=== PATIENT | male | born 1975 | race Hispanic/Latino ===

== ENCOUNTER 2021-02-26 20:14 | Observation (INO) | payer MEDICAID ==
[2021-02-26] MEDS ORDERED: ASPIRIN 325 MG TAB PO ONE (20:27)
[2021-02-26] MEDS ORDERED: MORPHINE 2 MG/1 ML INJ IV ONE (20:45)
--- NOTE | 2021-02-26 20:49 | Emergency Department Report ---
ED Chest Pain HPI - General Chief Complaint: Chest Pain Stated Complaint: CHEST PAIN PUI?: No Time Seen by Provider: 02/26/21 20:44 Source: patient Mode of arrival: Ambulatory Limitations: No Limitations - History of Present Illness Initial Comments: Patient is a 45-year-old male that presents emergency room with complaints of c hest pain. Patient states that his chest pain started around noon today. Patient states his chest pain is worsening. Patient states about 45 minutes prior to arrival he had a syncopal episode. Patient states that after he woke up from [facility] he took 3 nitros with the chest pain was more severe. Patient states chest pain is a 10 out of 10. Patient states that he had some relief from the nitro but very little. Patient states the chest pain is better with rest and worse with exertion. Patient states she has a past medical history of heart attacks, strokes, hypertension. Patient states that he has a defibrillator. Patient states he had 2 NSTEMI's in the past. Patient states he has no stents. Patient denies shortness of breath. Patient denies fever and chills. Patient states he has nausea without vomiting. Patient denies recent travel. Patient denies recent international travel. Patient denies exposure to the novel coronavirus. Patient denies sick contacts. Patient denies fever and chills. Patient denies cough. Patient denies diarrhea. Patient denies coming in contact with anybody with symptoms of the novel coronavirus. MD Complaint: chest pain -: Sudden Onset: during rest Pain Location: left chest Pain Radiation: neck, jaw/teeth Severity: severe Severity scale (0 -10): 10 Quality: sharp Consistency: constant Improves With: rest Worsens With: exertion re: nausea, sense of impending doom. denies: vomting, diaphoresis Other Symptoms: syncope Treatments Prior to Arrival: nitroglycerin Aspirin use within the Past 7 Days: (1) Yes - Related Data On Oral Contraceptives: No Allergies Allergy/AdvReac Type Severity Reaction Status Date / Time No Known Allergies Allergy Unverified 02/26/21 20:23 Heart Score - HEART Score History: Highly suspicious EKG: Non-specific Age: 45-65 Risk factors: > 3 risk factors or hx of atherosclerotic disease Troponin: < normal limit HEART Score: 6 - EKG Read Time Time EKG Completed: 20:19 EKG Read Time: 20:21 ED Review of Systems ROS: Stated complaint: CHEST PAIN Other details as noted in HPI Constitutional: denies: chills, fever Eyes: denies: eye pain, eye discharge, vision change ENT: denies: ear pain, throat pain Respiratory: denies: cough, shortness of breath, wheezing Cardiovascular: as per HPI, chest pain. denies: palpitations Endocrine: no symptoms reported Gastrointestinal: nausea. denies: abdominal pain, diarrhea Genitourinary: denies: urgency, dysuria Musculoskeletal: denies: back pain, joint swelling, arthralgia Skin: denies: rash, lesions Neurological: denies: headache, weakness, paresthesias Psychiatric: denies: anxiety, depression Hematological/Lymphatic: denies: easy bleeding, easy bruising ED Past Medical Hx - Past Medical History Previous Medical History?: Yes Hx Hypertension: Yes Hx CVA: Yes Hx Heart Attack/AMI: Yes Hx Seizures: Yes Additional medical history: NSTEMI x2 - Surgical History Past Surgical History?: Yes Additional Surgical History: pacemaker/defib - Family History Family history: no significant - Social History Smoking Status: Current Every Day Smoker Substance Use Type: Marijuana ED Physical Exam - General Limitations: No Limitations General appearance: alert, in no apparent distress - Head Head exam: Present: atraumatic, normocephalic - Eye Eye exam: Present: normal appearance - ENT ENT exam: Present: mucous membranes moist - Neck Neck exam: Present: normal inspection - Respiratory Respiratory exam: Present: normal lung sounds bilaterally. Absent: respiratory distress, chest wall tenderness - Cardiovascular Cardiovascular Exam: Present: regular rate, normal rhythm. Absent: systolic murmur, diastolic murmur, rubs, gallop - GI/Abdominal GI/Abdominal exam: Present: soft, normal bowel sounds - Rectal Rectal exam: Present: deferred - Extremities Exam Extremities exam: Present: normal inspection - Back Exam Back exam: Present: normal inspection - Neurological Exam Neurological exam: Present: alert, oriented X3 - Psychiatric Psychiatric exam: Present: normal affect, normal mood - Skin Skin exam: Present: warm, dry, intact, normal color. Absent: rash ED Course Vital Signs 02/26/21 02/26/21 02/26/21 20:24 20:50 21:01 Temperature 98.3 F 97.7 F Pulse Rate 92 H 84 80 Respiratory 18 14 19 Rate Blood Pressure 129/94 123/67 Blood Pressure 136/76 [Right] O2 Sat by Pulse 97 96 97 Oximetry 02/26/21 02/26/21 02/26/21 21:12 21:16 21:42 Temperature Pulse Rate 79 Respiratory 18 13 18 Rate Blood Pressure 123/67 Blood Pressure [Right] O2 Sat by Pulse 96 Oximetry 02/26/21 02/26/21 02/26/21 22:32 22:45 23:01 Temperature Pulse Rate 87 83 89 Respiratory 22 12 23 Rate Blood Pressure 134/74 134/74 Blood Pressure [Right] O2 Sat by Pulse 97 98 Oximetry 02/26/21 02/26/21 02/26/21 23:02 23:15 23:31 Temperature Pulse Rate 81 88 Respiratory 18 14 Rate Blood Pressure 147/99 123/67 Blood Pressure [Right] O2 Sat by Pulse Oximetry 02/26/21 23:45 Temperature Pulse Rate 82 Respiratory 14 Rate Blood Pressure 134/74 Blood Pressure [Right] O2 Sat by Pulse Oximetry - Reevaluation(s) Reevaluation #1: Patient still complaining of chest pain. He states the pain is a little bit better. Patient states he is having nausea as well now. Patient will be given Dilaudid and Zofran. 02/26/21 22:05 Reevaluation #2: I discussed all results with patient. I discussed plan of care with patient. Patient agrees with plan of care and admission. Patient to be admitted to the hospitalist service. 02/26/21 23:06 - Consultations Consultation #1: Hospitalist consulted for admission. Hospitalist to admit patient. 02/26/21 23:06 SAUL score - Saul Score Age > 65: (0) No Aspirin use within the Past 7 Days: (1) Yes 3 or more CAD Risk Factors: (1) Yes 2 or more Angina events in past 24 hrs: (1) Yes Known CAD with more than 50% Stenosis: (0) No Elevated Cardiac Markers: (0) No ST Deviation Greater than 0.5mm: (0) No SAUL Score: 3 ED Medical Decision Making - Lab Data Result diagrams: 02/26/21 23:41 02/26/21 20:35 - Radiology Data Radiology results: report reviewed, image reviewed interpreted by me: Chest x-ray: No pneumonia, no pneumothorax, no foreign body, no osseous findings, no acute findings CHEST 1 VIEW INDICATION: chest pain. COMPARISON: None FINDINGS: SUPPORT DEVICES: Cardiac leads project over the right atrium and the right ventricle. HEART: Within normal limits. LUNGS/PLEURA: No acute air space or interstitial disease. ADDITIONAL FINDINGS: None. IMPRESSION: 1. No acute findings. NONENHANCED CT SCAN OF THE HEAD: INDICATION / CLINICAL INFORMATION: 45 years Male; syncope. TECHNIQUE: Routine CT head without contrast. All CT scans at this location are performed using CT dose reduction for ALARA by means of automated exposure control. COMPARISON: None. FINDINGS: BRAIN / INTRACRANIAL CONTENTS: No acute hemorrhage, mass effect, midline shift, hydrocephalus, or acute, large territorial infarct. No chronic infarct or focal atrophy. Normal brain volume and ventricular/sulcal size for age. No significant white matter abnormality. CRANIOCERVICAL JUNCTION: No significant abnormality. ORBITS: No significant abnormality of visualized orbits. SINUSES / MASTOIDS: No significant abnormality of the visualized paranasal s inuses or mastoid air cells. ADDITIONAL FINDINGS: None. IMPRESSION: No focal parenchymal lesion - Medical Decision Making Patient is a 45-year-old male who presents emergency room with complaints of chest pain. Patient also had a syncopal episode after the chest pain started. Patient states he woke up with chest pain and took 3 nitros and his pain continued so he came to the hospital. Patient has a cardiac history to include NSTEMI. Patient had labs done which were essentially unremarkable. Patient was given morphine and his pain in proved. Patient then complained of worsening pain and nausea and the patient was given Dilaudid. Patient had a chest x-ray which was negative for acute findings. Patient had an EKG which was negative for acute findings. Personally reviewed the EKG and chest x-ray. Patient had CT for the syncopal episode. CT was negative for acute findings. Patient admitted to the hospital service for further evaluation treatment and rule out ACS. Critical care time documented due to the multiple reassessments, prolonged time at the bedside, interpretation of diagnostics and labs. - Differential Diagnosis ACS chest pain, syncope, pneumonia, nausea Critical Care Time: Yes Critical care time in (mins) excluding proc time.: 35 Critical care attestation.: If time is entered above; I have spent that time in minutes in the direct care of this critically ill patient, excluding procedure time. Critical Care Time: 35 minutes ED Disposition Clinical Impression: Chest pain Qualifiers: Chest pain type: unspecified Qualified Code(s): R07.9 - Chest pain, unspecified CAD (coronary artery disease) Qualifiers: Coronary Disease-Associated Artery/Lesion type: [place] artery [place] vs. transplanted heart: [place] heart Associated angina: unspecified whether angina present Qualified Code(s): I25.10 - Atherosclerotic heart disease of [place] coronary artery without angina pectoris Syncope Qualifiers: Syncope type: unspecified Qualified Code(s): R55 - Syncope and collapse Disposition: 09 OP ADMIT IP TO THIS HOSP Is pt being admited?: Yes Does the pt Need Aspirin: No Condition: Critical Time of Disposition: 23:07
[2021-02-26 20:52] LABS: Basophils # (Auto) 0.1 K/mm3 (0.0-0.1); Basophils % (Auto) 1.3 % (0.0-1.8); Eosinophils # (Auto) 0.4 K/mm3 (0.0-0.4); Eosinophils % (Auto) 6.3 % (0.0-4.3); Hematocrit 35.1 % (35.5-45.6); Hemoglobin 11.6 gm/dl (11.8-15.2); Lymphocytes # (Auto) 2.3 K/mm3 (1.2-5.4); Lymphocytes % (Auto) 38.9 % (13.4-35.0); Mean Corpuscular HGB Conc 33 % (32-34); Mean Corpuscular Volume 80 fl (84-94); Monocytes # (Auto) 0.5 K/mm3 (0.0-0.8); Monocytes % (Auto) 8.7 % (0.0-7.3); Platelet Count 370 K/mm3 (140-440); Red Blood Count 4.42 M/mm3 (3.65-5.03); Red Cell Distribution Width 16.6 % (13.2-15.2)
--- NOTE | 2021-02-26 21:00 | XRay Report ---
CHEST 1 VIEW INDICATION: chest pain. COMPARISON: None FINDINGS: SUPPORT DEVICES: Cardiac leads project over the right atrium and the right ventricle. HEART: Within normal limits. LUNGS/PLEURA: No acute air space or interstitial disease. ADDITIONAL FINDINGS: None. IMPRESSION: 1. No acute findings. Signer Name: Jose Ramon Brown MD Signed: 02/26/2021 8:56 PM Workstation Name: [id number]
[2021-02-26 21:15] LABS: Alanine Aminotransferase 13 units/L (7-56); Albumin 4.1 g/dL (3.9-5); BUN/Creatinine Ratio 14; Blood Urea Nitrogen 11 mg/dL (9-20); Calcium 8.4 mg/dL (8.4-10.2); Hemolysis Index 9
--- NOTE | 2021-02-26 21:39 | Cat Scan Report ---
NONENHANCED CT SCAN OF THE HEAD: INDICATION / CLINICAL INFORMATION: 45 years Male; syncope. TECHNIQUE: Routine CT head without contrast. All CT scans at this location are performed using CT dos e reduction for ALARA by means of automated exposure control. COMPARISON: None. FINDINGS: BRAIN / INTRACRANIAL CONTENTS: No acute hemorrhage, mass effect, midline shift, hydrocephalus, or acu te, large territorial infarct. No chronic infarct or focal atrophy. Normal brain volume and ventricul ar/sulcal size for age. No significant white matter abnormality. CRANIOCERVICAL JUNCTION: No significant abnormality. ORBITS: No significant abnormality of visualized orbits. SINUSES / MASTOIDS: No significant abnormality of the visualized paranasal sinuses or mastoid air gabriela ls. ADDITIONAL FINDINGS: None. IMPRESSION: No focal parenchymal lesion Signer Name: Awais Salgado MD Signed: 02/26/2021 9:35 PM Workstation Name: [id number]
[2021-02-26 21:43] LABS: INR 0.86 (0.87-1.13)
[2021-02-26 21:44] LABS: Partial Thromboplastin Time 23.5 Sec. (24.2-36.6)
[2021-02-26] MEDS ORDERED: ONDANSETRON 4 MG/2 ML INJ IV ONE (22:26)
[2021-02-26] MEDS ORDERED: HYDROmorphone 1 MG/1 ML INJ IV ONE (22:26)
[2021-02-26] MEDS ORDERED: traMADol 50 MG TAB PO PRN (23:26)
[2021-02-26] MEDS ORDERED: NITROGLYCERIN 0.4 MG TAB SUBL SL PRN (23:26)
[2021-02-26] MEDS ORDERED: ACETAMINOPHEN 325 MG TAB PO PRN (23:26)
[2021-02-26] MEDS ORDERED: hydrALAZINE 20 MG/1 ML INJ IV PRN (23:28)
--- NOTE | 2021-02-26 23:33 | History and Physical Report ---
History of Present Illness Date of examination: 02/26/21 Date of admission: 02/26/21 Chief complaint: Chest pain Syncopal episode History of present illness: 45-year-old male with past medical history of hypertension and strokes and defibrillator was brought to the emergency room because of chest pain since noon today. Chest pain was sharp left-sided 10/10 constant rating to the neck and jaw. patient states about 45 minutes prior to arrival he had a syncopal ep isode. Patient took 3 nitros with the chest pain was more severe. Patient states that he had some relief from the nitro but very little. Patient states the chest pain is better with rest and worse with exertion. Patient states he had 2 NSTEMI's in the past. Patient states he has no stents. Patient denies shortness of breath. Patient denies fever and chills. Patient states he has nausea without vomiting. In the emergency room initial cardiac enzyme is negative troponin is 0.010 Past History Past Medical History: hypertension, seizures (Non-ST elevation [place]), stroke Medications and Allergies Allergies Allergy/AdvReac Type Severity Reaction Status Date / Time No Known Allergies Allergy Unverified 02/26/21 20:23 Review of Systems Cardiovascular: chest pain, syncope Exam - Constitutional Vitals: Temp Pulse Resp BP Pulse Ox 97.7 F 81 14 147/99 98 02/26/21 20:50 02/26/21 23:15 02/26/21 23:15 02/26/21 23:15 02/26/21 22:45 General appearance: Present: no acute distress, well-nourished - EENT Eyes: Present: PERRL ENT: hearing intact, clear oral mucosa - Neck Neck: Present: supple, normal ROM - Respiratory Respiratory effort: normal Respiratory: bilateral: CTA - Cardiovascular Heart Sounds: Present: S1 & S2. Absent: rub, click - Extremities Extremities: pulses symmetrical, No edema Peripheral Pulses: within normal limits - Abdominal General gastrointestinal: Present: soft, non-tender, non-distended, normal bowel sounds Male genitourinary: Present: normal - Integumentary Integumentary: Present: clear, warm, dry - Musculoskeletal Musculoskeletal: gait normal, strength equal bilaterally - Psychiatric Psychiatric: appropriate mood/affect, intact judgment & insight - Neurologic Neurologic: CNII-XII intact, moves all extremities HEART Score - HEART Score EKG: Non-specific Age: 45-65 Risk factors: > 3 risk factors or hx of atherosclerotic disease Troponin: Troponin T < 0.010 ng/mL (0.00-0.029) 02/26/21 20:35 Troponin: < normal limit Results - Labs CBC & Chem 7: 02/26/21 20:35 02/26/21 20:35 Labs: Laboratory Last Values WBC 6.0 K/mm3 (4.5-11.0) 02/26/21 20:35 RBC 4.42 M/mm3 (3.65-5.03) 02/26/21 20:35 Hgb 11.6 gm/dl (11.8-15.2) L 02/26/21 20:35 Hct 35.1 % (35.5-45.6) L 02/26/21 20:35 MCV 80 fl (84-94) L 02/26/21 20:35 MCH 26 pg (28-32) L 02/26/21 20:35 MCHC 33 % (32-34) 02/26/21 20:35 RDW 16.6 % (13.2-15.2) H 02/26/21 20:35 Plt Count 370 K/mm3 (140-440) 02/26/21 20:35 Lymph % (Auto) 38.9 % (13.4-35.0) H 02/26/21 20:35 [place] % (Auto) 8.7 % (0.0-7.3) H 02/26/21 20:35 Eos % (Auto) 6.3 % (0.0-4.3) H 02/26/21 20:35 Baso % (Auto) 1.3 % (0.0-1.8) 02/26/21 20:35 Lymph # (Auto) 2.3 K/mm3 (1.2-5.4) 02/26/21 20:35 [place] # (Auto) 0.5 K/mm3 (0.0-0.8) 02/26/21 20:35 Eos # (Auto) 0.4 K/mm3 (0.0-0.4) 02/26/21 20:35 Baso # (Auto) 0.1 K/mm3 (0.0-0.1) 02/26/21 20:35 Seg Neutrophils % 44.8 % (40.0-70.0) 02/26/21 20:35 Seg Neutrophils # 2.7 K/mm3 (1.8-7.7) 02/26/21 20:35 PT 12.3 Sec. (12.2-14.9) 02/26/21 21:08 INR 0.86 (0.87-1.13) L 02/26/21 21:08 APTT 23.5 Sec. (24.2-36.6) L 02/26/21 21:08 D-Dimer 173.15 ng/mlDDU (0-234) 02/26/21 21:08 Sodium 142 mmol/L (137-145) 02/26/21 20:35 Potassium 3.8 mmol/L (3.6-5.0) 02/26/21 20:35 Chloride 105.5 mmol/L (98-107) 02/26/21 20:35 Carbon Dioxide 23 mmol/L (22-30) 02/26/21 20:35 Anion Gap 17 mmol/L 02/26/21 20:35 BUN 11 mg/dL (9-20) 02/26/21 20:35 Creatinine 0.8 mg/dL (0.8-1.3) 02/26/21 20:35 Estimated GFR > 60 ml/min 02/26/21 20:35 BUN/Creatinine Ratio 14 % 02/26/21 20:35 Glucose 76 mg/dL (75-100) 02/26/21 20:35 Calcium 8.4 mg/dL (8.4-10.2) 02/26/21 20:35 Total Bilirubin < 0.20 mg/dL (0.1-1.2) 02/26/21 20:35 AST 15 units/L (5-40) 02/26/21 20:35 ALT 13 units/L (7-56) 02/26/21 20:35 Alkaline Phosphatase 81 units/L (35-129) 02/26/21 20:35 Troponin T < 0.010 ng/mL (0.00-0.029) 02/26/21 20:35 Total Protein 7.0 g/dL (6.3-8.2) 02/26/21 20:35 Albumin 4.1 g/dL (3.9-5) 02/26/21 20:35 Albumin/Globulin Ratio 1.4 % 02/26/21 20:35 - Imaging and Cardiology Chest x-ray: report reviewed CT Scan - head: report reviewed Assessment and Plan VTE prophylaxis?: Chemical Plan of care discussed with patient/family: Yes - Patient Problems (1) Acute coronary syndrome Current Visit: Yes Status: Acute Plan to address problem: Admit the patient to the cardiac telemetry. Aspirin 81 mg p.o. daily. Lipitor 40 mg p.o. daily nitroglycerin as needed. Morphine 2 mg every 4 hours as needed. Due to the serial cardiac enzyme. We also do a Lexiscan. Consult cardiology if needed in the morning (2) Hypertension Current Visit: Yes Status: Acute Plan to address problem: Hydralazine 10 mg IV every 6 hours as needed. We will monitor the blood pressure closely (3) CVA (cerebral vascular accident) Current Visit: Yes Status: Acute Plan to address problem: Aspirin 81 mg p.o. daily. Lipitor [address] head shows no acute intracranial abnormality (4) Tobacco abuse Current Visit: Yes Status: Acute Plan to address problem: We counseled regarding quit smoking. We will put the patient on nicotine patch 14 mg to the skin daily (5) CAD (coronary artery disease) Current Visit: Yes Status: Acute Qualifiers: Coronary Disease-Associated Artery/Lesion type: [place] artery [place] vs. transplanted heart: [place] heart Associated angina: unspecified whether angina present Qualified Code(s): I25.10 - Atherosclerotic heart disease of [place] coronary artery without angina pectoris Plan to address problem: Aspirin 81 mg p.o. daily. Lipitor 40 mg p.o. daily. Nitroglycerin as needed. Check lipid panel (6) DVT prophylaxis Current Visit: Yes Status: Acute Plan to address problem: Heparin 5000 units subcu every 8 hours for DVT prophylaxis. Protonix 40 mg p.o. daily for GI prophylaxis. Patient is a full code
[2021-02-27 00:09] LABS: Basophils # (Auto) 0.1 K/mm3 (0.0-0.1); Basophils % (Auto) 1.5 % (0.0-1.8); Eosinophils # (Auto) 0.3 K/mm3 (0.0-0.4); Eosinophils % (Auto) 6.7 % (0.0-4.3); Hematocrit 33.9 % (35.5-45.6); Hemoglobin 11.1 gm/dl (11.8-15.2); Lymphocytes # (Auto) 2.2 K/mm3 (1.2-5.4); Lymphocytes % (Auto) 42.3 % (13.4-35.0); Mean Corpuscular HGB Conc 33 % (32-34); Mean Corpuscular Volume 79 fl (84-94); Monocytes # (Auto) 0.3 K/mm3 (0.0-0.8); Monocytes % (Auto) 6.7 % (0.0-7.3); Platelet Count 358 K/mm3 (140-440); Red Blood Count 4.31 M/mm3 (3.65-5.03); Red Cell Distribution Width 16.7 % (13.2-15.2)
[2021-02-27 00:29] LABS: BUN/Creatinine Ratio 14; Blood Urea Nitrogen 11 mg/dL (9-20); Calcium 8.3 mg/dL (8.4-10.2); Hemolysis Index 11
[2021-02-27] MEDS ORDERED: NICOTINE 14 MG/24 HR PATCH TD ONE (00:45)
[2021-02-27] MEDS ORDERED: ONDANSETRON 4 MG/2 ML INJ ONE (01:03)
[2021-02-27] MEDS: MORPHINE 2 MG/1 ML INJ IV PRN ×2 (01:07→06:57)
[2021-02-27] MEDS ORDERED: HEPARIN 5,000 UNIT/1 ML VIAL SUB-Q SCH (06:00)
[2021-02-27] MEDS: ONDANSETRON 4 MG/2 ML INJ IV PRN ×2 (06:55→09:31)
[2021-02-27] MEDS ORDERED: REGADENOSON 0.4 MG/5 ML INJ IV ONE ×2 (08:39→08:49)
[2021-02-27] MEDS ORDERED: ONDANSETRON 4 MG/2 ML INJ IV ONE (09:01)
--- NOTE | 2021-02-27 09:12 | Progress Note ---
Assessment and Plan Assessment and plan: -- Acute coronary syndrome Current Visit: Yes Status: Acute Admit the patient to the cardiac telemetry. Aspirin 81 mg p.o. daily. Lipitor 40 mg p.o. daily nitroglycerin as needed. Morphine 2 mg every 4 hours as needed. Due to the serial cardiac enzyme. We also do a Lexiscan. Consult cardiology if needed in the morning -- Hypertension Current Visit: Yes Status: Acute Hydralazine 10 mg IV every 6 hours as needed. We will monitor the blood pressure closely --Syncope Current Visit: Yes Status: Acute Aspirin 81 mg p.o. daily. Lipitor [address] head shows no acute intracranial abnormality Echocardiogram, carotid Doppler, PT if needed, fall precautions --Tobacco abuse Current Visit: Yes Status: Acute We counseled regarding quit smoking. We will put the patient on nicotine patch 14 mg to the skin daily -- CAD (coronary artery disease) Current Visit: Yes Status: Acute : Aspirin 81 mg p.o. daily. Lipitor 40 mg p.o. daily. Nitroglycerin as needed. Check lipid panel -- DVT prophylaxis Current Visit: Yes Status: Acute Heparin 5000 units subcu every 8 hours for DVT prophylaxis. Protonix 40 mg p.o. daily for GI prophylaxis. Patient is a full code Hospitalist Physical - Constitutional Vitals: Temp Pulse Resp BP Pulse Ox 97.9 F 83 18 128/81 97 02/27/21 04:19 02/27/21 04:19 02/27/21 06:57 02/27/21 04:19 02/27/21 04:19 General appearance: Present: no acute distress, well-nourished HEART Score - HEART Score EKG: Non-specific Age: 45-65 Risk factors: > 3 risk factors or hx of atherosclerotic disease Troponin: Troponin T < 0.010 ng/mL (0.00-0.029) 02/27/21 05:25 Troponin: < normal limit Results - Labs CBC & Chem 7: 02/26/21 23:41 02/26/21 23:41 Labs: Laboratory Last Values WBC 5.2 K/mm3 (4.5-11.0) 02/26/21 23:41 RBC 4.31 M/mm3 (3.65-5.03) 02/26/21 23:41 Hgb 11.1 gm/dl (11.8-15.2) L 02/26/21 23:41 Hct 33.9 % (35.5-45.6) L 02/26/21 23:41 MCV 79 fl (84-94) L 02/26/21 23:41 MCH 26 pg (28-32) L 02/26/21 23:41 MCHC 33 % (32-34) 02/26/21 23:41 RDW 16.7 % (13.2-15.2) H 02/26/21 23:41 Plt Count 358 K/mm3 (140-440) 02/26/21 23:41 Lymph % (Auto) 42.3 % (13.4-35.0) H 02/26/21 23:41 [place] % (Auto) 6.7 % (0.0-7.3) 02/26/21 23:41 Eos % (Auto) 6.7 % (0.0-4.3) H 02/26/21 23:41 Baso % (Auto) 1.5 % (0.0-1.8) 02/26/21 23:41 Lymph # (Auto) 2.2 K/mm3 (1.2-5.4) 02/26/21 23:41 [place] # (Auto) 0.3 K/mm3 (0.0-0.8) 02/26/21 23:41 Eos # (Auto) 0.3 K/mm3 (0.0-0.4) 02/26/21 23:41 Baso # (Auto) 0.1 K/mm3 (0.0-0.1) 02/26/21 23:41 Seg Neutrophils % 42.8 % (40.0-70.0) 02/26/21 23:41 Seg Neutrophils # 2.2 K/mm3 (1.8-7.7) 02/26/21 23:41 PT 12.3 Sec. (12.2-14.9) 02/26/21 21:08 INR 0.86 (0.87-1.13) L 02/26/21 21:08 APTT 23.5 Sec. (24.2-36.6) L 02/26/21 21:08 D-Dimer 173.15 ng/mlDDU (0-234) 02/26/21 21:08 Sodium 140 mmol/L (137-145) 02/26/21 23:41 Potassium 3.8 mmol/L (3.6-5.0) 02/26/21 23:41 Chloride 103.6 mmol/L (98-107) 02/26/21 23:41 Carbon Dioxide 24 mmol/L (22-30) 02/26/21 23:41 Anion Gap 16 mmol/L 02/26/21 23:41 BUN 11 mg/dL (9-20) 02/26/21 23:41 Creatinine 0.8 mg/dL (0.8-1.3) 02/26/21 23:41 Estimated GFR > 60 ml/min 02/26/21 23:41 BUN/Creatinine Ratio 14 % 02/26/21 23:41 Glucose 84 mg/dL (75-100) 02/26/21 23:41 Calcium 8.3 mg/dL (8.4-10.2) L 02/26/21 23:41 Total Bilirubin < 0.20 mg/dL (0.1-1.2) 02/26/21 20:35 AST 15 units/L (5-40) 02/26/21 20:35 ALT 13 units/L (7-56) 02/26/21 20:35 Alkaline Phosphatase 81 units/L (35-129) 02/26/21 20:35 Troponin T < 0.010 ng/mL (0.00-0.029) 02/27/21 05:25 Total Protein 7.0 g/dL (6.3-8.2) 02/26/21 20:35 Albumin 4.1 g/dL (3.9-5) 02/26/21 20:35 Albumin/Globulin Ratio 1.4 % 02/26/21 20:35 [place]/IV: Voiding Method Urinal Active Medications - Current Medications Current Medications: Generic Name Dose Route Start Last Admin Trade Name Freq PRN Reason Stop Dose Admin Acetaminophen 650 mg 02/26/21 23:26 Acetaminophen 325 Mg Tab PO Q6H PRN Pain, Mild (1-3) Aspirin 81 mg 02/27/21 10:00 Aspirin 81 Mg Tab Chew PO QDAY [facility] Atorvastatin Calcium 40 mg 02/27/21 22:00 Atorvastatin 40 Mg Tab PO QHS [facility] Heparin Sodium (Porcine) 5,000 unit 02/27/21 06:00 02/27/21 06:54 Heparin 5,000 Unit/1 Ml Vial SUB-Q 5,000 unit Q8HR CESAR Administration Hydralazine HCl 10 mg 02/26/21 23:28 Hydralazine 20 Mg/1 Ml Inj IV Q6H PRN Blood Pressure Morphine Sulfate 2 mg 02/26/21 23:26 02/27/21 06:57 Morphine 2 Mg/1 Ml Inj IV 2 mg Q5MIN PRN Administration Chest Pain Nitroglycerin 0.4 mg 02/26/21 23:26 Nitroglycerin 0.4 Mg Tab Subl SL Q5M PRN Chest Pain Ondansetron HCl 4 mg 02/27/21 01:04 02/27/21 06:55 Ondansetron 4 Mg/2 Ml Inj IV 4 mg Q6H PRN Administration Nausea And Vomiting Ondansetron HCl 4 mg 02/27/21 09:01 Ondansetron 4 Mg/2 Ml Inj IV 02/27/21 09:02 ONCE ONE Pantoprazole Sodium 40 mg 02/27/21 10:00 Pantoprazole 40 Mg Tab PO QDAY CESAR Sodium Chloride 10 ml 02/26/21 23:26 Sodium Chloride 0.9% 10 Ml Flush Syringe IV PRN PRN LINE FLUSH Tramadol HCl 50 mg 02/26/21 23:26 Tramadol 50 Mg Tab PO Q6H PRN Pain, Moderate (4-6)
--- NOTE | 2021-02-27 09:19 | Electrocardiograph Report ---
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
[2021-02-27] MEDS ORDERED: ASPIRIN 81 MG TAB CHEW PO SCH (10:00)
[2021-02-27] MEDS ORDERED: PANTOPRAZOLE 40 MG TAB PO SCH (10:00)
--- NOTE | 2021-02-27 10:42 | Nuclear Medicine Report ---
APPROVED REPORT Exam: Nuclear Stress Test Indication: Chest pain BMI: 0 Stress Test Details Stress Test: Pharmacologic stress testing performed using 0.4 mg of regadenoson per 5 mL given IV over 10 seconds. HR Resting HR: 70 bpm Max HR Achieved: 97 bpm Max Heart Rate (APMHR): 174 bpm Target HR (85% APMHR): 147 bpm % of APMHR: 55 Recovery HR: 84 bpm HR response to stress: Normal HR response to stress BP Resting BP: 130/83 mmHg Max BP: 140/94 mmHg Recovery BP: 134/79 mmHg BP response to stress: Normal blood pressure response to stress. ECG Resting ECG: Sinus Rhythm Stress ECG: Sinus Rhythm Clinical Reason for Termination: Completed protocol Stress Symptoms: Nausea NM EXAM: Myocardial Perfusion REST/STRESS Imaging Protocol: Rest Tc-99m/Stress Tc-99m 1 day Resting Data Rest SPECT myocardial perfusion imaging was performed in supine position 45 minutes following the intravenous injection of 10 mCi of Tc-99m Myoview. Time of rest injection: 0635 Pharmacologic Stress Pharmacologic stress test was performed by injecting Regadenoson 0.4 mg IV push followed by the intravenous injection of 28 mCi of Tc-99m Myoview. Time of stress injection: 0858 Gated Stress SPECT was performed 30 minutes after stress injection. The images were gated to evaluate regional wall motion and calculate left ventricular ejection fraction. Study Quality Study: excellent Lung Uptake: Normal Study Data TID = 1.05. Perfusion Wall Motion The rest and stress images show normal left ventricular wall motion. Nuclear Conclusion ECG Findings: negative for ischemia Clinical Findings: negative for ischemia Nuclear Findings: negative for ischemia Exercise Capacity: not assessed Left Ventricular Function: normal Normal study. No scintigraphic evidence for myocardial ischemia or scar. Normal left ventricular size and function with no regional wall motion abnormalities. Normal study. No scintigraphic evidence for myocardial ischemia or scar.
[2021-02-27 12:32] VITALS: BP 134/88
--- NOTE | 2021-03-01 09:43 | Electrocardiograph Report ---
[facility] Test Date: 2021-02-27 Test Time: 10:11:30 Pat Name: LUIS MIGUEL BELTRAN Department: Room: A453 1 Gender: M Drapery Hand: LIZBET : 1975 Requested By: BERNADETTE CHAVEZ Order Number: [id number] Reading MD: Eduardo Modi Measurements Intervals [place] Rate: 65 P: 20 DE: 162 QRS: 5 QRSD: 85 T: 27 QT: 390 QTc: 406 Interpretive Statements Sinus rhythm Compared to ECG 02/26/2021 20:19:25 No significant changes Electronically Signed On 03-01-2021 9:43:24 EDT by Eduardo Modi
--- NOTE | 2021-03-16 18:22 | Discharge Summary ---
Providers - Providers Date of Admission: 02/26/21 23:03 Date of discharge: 02/27/21 Attending physician: AVTAR LYNN 02/26/21 Consult to Cardiac Rehabilitation [CONS] Routine Reason For Exam: Phase I Primary care physician: SUPERVISOR GRIPS Hospitalization Reason for admission: Chest pain, syncopal episode Condition: Critical Pertinent studies: Echo; normal EF 55 to 60% Stress test; negative for ischemia Chest x-rays Hospital course: 45-year-old male with past medical history of hypertension and strokes and defibrillator was brought to the emergency room because of chest pain since noon today. Chest pain was sharp left-sided 10/10 constant rating to the neck and jaw. patient states about 45 minutes prior to arrival he had a syncopal episode. Patient took 3 nitros with the chest pain was more severe. Patient states that he had some relief from the nitro but very little. Patient states the chest pain is better with rest and worse with exertion. Patient states he had 2 NSTEMI's in the past. Patient states he has no stents. Patient denies shortness of breath. Patient denies fever and chills. Patient states he has nausea without vomiting. Patient was admitted to the hospital appropriately managed to evaluate for acute coronary syndrome, patient was evaluated by cardiology Underwent stress test which was negative for ischemia, echocardiogram normal ejection fraction However patient did not wait for the reports of the stress test and echocardiogram and left AMA Risks and consequences of leaving AMA without knowing the reports and the treatment plan were explained to the patient He verbalized understanding left AMA. Discharge diagnosis -- Acute coronary syndrome Current Visit: Yes Status: Acute -- Hypertension Current Visit: Yes Status: Acute --Syncope Current Visit: Yes Status: Acute --Tobacco abuse Current Visit: Yes Status: Acute -- CAD (coronary artery disease) Current Visit: Yes Status: Acute : Patient left AMA Disposition: DC-07 LEFT AGAINST MED ADVICE Final Discharge Diagnosis (Prints w/discharge instructions): Acute coronary syndrome. Hypertension. Syncope. Tobacco use. CAD/coronary artery disease Time spent for discharge: 35 minutes Core Measure Documentation - Palliative Care Palliative Care/ Comfort Measures: Not Applicable - Core Measures Any of the following diagnoses?: none Exam - Physical Exam Narrative exam: Patient left AMA - Constitutional Vitals: Temp Pulse Resp BP Pulse Ox 97.9 F 83 20 134/88 97 02/27/21 04:19 02/27/21 04:19 02/27/21 11:36 02/27/21 09:11 02/27/21 04:19 Plan Additional Instructions: Patient left AMA Follow up with: PRIMARY CARE, [Primary Care Provider] - 3-5 Days
== END 2021-02-27 12:46 | disposition left against medical advice (07) ==
LOC: ED 20:14 → 4A 23:03
PROVIDERS: ADMIT Hospitalist; ATTEND Internal Medicine
DX: I24.9 Acute ischemic heart disease, unspecified (principal); I10 Essential (primary) hypertension; I63.9 Cerebral infarction, unspecified; I25.10 Atherosclerotic heart disease of native coronary artery without angina pectoris; F17.210 Nicotine dependence, cigarettes, uncomplicated; R56.9 Unspecified convulsions; I21.4 Non-ST elevation (NSTEMI) myocardial infarction; R55 Syncope and collapse; R29.700 NIHSS score 0; Z95.0 Presence of cardiac pacemaker; Z79.899 Other long term (current) drug therapy; Z98.890 Other specified postprocedural states
CPT/HCPCS: 36415; 70450; 71045; 78452; 80048; 80053; 84484; 85025; 85379; 85610; 85730; 93005; 93017; 93306; 96372; 96374; 96375; 96376; 99291; A9502; G0378; J1170; J1644; J2270; J2405; J2785